=== PATIENT | male | born 1975 ===

== ENCOUNTER 2018-04-05 10:35 | Day surgery (SDC) | payer SELFPAY ==
[2018-04-05] MEDS ORDERED: Lidocaine 2% MPF (5 ml) Inj ONE (10:54)
[2018-04-05] MEDS ORDERED: Lidocaine 1% w Epi 1:100,000 Inj ONE (10:54)
[2018-04-05] MEDS ORDERED: Lidocaine 2% w Epi 1:100,000 Inj IJ ONE (10:55)
[2018-04-05 11:07] VITALS: TEMP 97.5
[2018-04-05] MEDS ORDERED: Lactated Ringer's 1,000 ML IV ONE (11:13)
[2018-04-05] MEDS ORDERED: Lidocaine/Epi 1% 1:100000 20 ML IJ ONE (12:19)
--- NOTE | 2018-04-05 12:42 | PCM.SURG1 ---
Surgeon's Initial Post Op Note - Surgeon's Notes Surgeon: Dr. Wiggins Well Site Drilling Engineer: Dr. Hartman PGY-3 Type of Anesthesia: Local Pre-Operative Diagnosis: Left inner thigh skin tag Operative Findings: See operative report Post-Operative Diagnosis: Same Operation Performed: Excision of left thigh skin tag Specimen/Specimens Removed: Skin tag Estimated Blood Loss: EBL {In ML}: 2 Blood Products Given: N/A Drains Used: No Drains Post-Op Condition: Good Date of Surgery/Procedure: 04/05/18 Time of Surgery/Procedure: 12:42
[2018-04-05 13:01] VITALS: BP 117/79; PULSE 52; RESP 18; O2SAT 99
--- NOTE | 2018-04-06 00:52 | OP ---
PROCEDURE DATE: 04/05/2018 TIME OF SURGERY: 12:15 p.m. PREOPERATIVE DIAGNOSIS: Left inner thigh skin tag. POSTOPERATIVE DIAGNOSIS: Left inner thigh skin tag. OPERATION PERFORMED: Excision of left thigh skin tag. SURGEON: Connie Wiggins MD MACHINE MILKER: Shilpa Hartman DO, PGY-3. TYPE OF ANESTHESIA: Local. ESTIMATED BLOOD LOSS: 2 mL. SPECIMEN REMOVED: Skin tag. DESCRIPTION OF PROCEDURE: After informed consent was obtained, the patient was taken to the OR and prepped and draped in a sterile manner. The left inner thigh skin tag was prepped with chlorhexidine and 1% lidocaine with epinephrine was used to anesthetize the skin around the skin tag, about 3 mL of local anesthetic was given. A #15 scalpel was then used to amputate the skin tag right at the base. Some pressure was held over the skin to stop any bleeding and 4-0 Monocryl sutures were used to approximate the skin incision. Dermabond was then placed on top of the skin once it was closed. All counts were correct at the end of the procedure, and the patient tolerated the procedure well. He was wheeled to PACU in stable condition. Shilpa Hartman DO Connie Wiggins MD [facility]
== END 2018-04-05 13:35 | disposition home or self-care (01) ==
LOC: H.OPSURG 10:35
PROVIDERS: ATTEND Specialist
DX: D17.9 Benign lipomatous neoplasm, unspecified (principal)
CPT/HCPCS: 11200; 88304; J7120